=== PATIENT | male | born 1970 ===

== ENCOUNTER 2018-05-30 00:30 | Emergency (ER) | payer OTHER ==
[2018-05-30 00:57] VITALS: BP 118/76; PULSE 74; RESP 17; TEMP 98.3; O2SAT 96
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
== END 2018-05-30 02:12 | disposition home or self-care (01) ==
LOC: H.ER 00:30
DX: M54.2 Cervicalgia (principal)